=== PATIENT | female | born 1970 | race Caucasian/White ===

== ENCOUNTER 2022-01-15 09:13 | Day surgery (SDC) | payer BC, OTHER ==
[~2022-01-15 09:13] MED LIST: Lactated Ringers 1,000 ML IV SCH
[2022-01-15] MEDS ORDERED: fentaNYL 100 MCG/2 ML SDV ONE (10:20)
[2022-01-15] MEDS ORDERED: Propofol 200 MG/20 ML SDV ONE (10:20)
[2022-01-15] MEDS ORDERED: Lactated Ringers 1,000 ML IV SCH (12:15)
== END 2022-01-15 12:30 | disposition home or self-care (01) ==
LOC: MW.SDS 09:13
PROVIDERS: ATTEND Surgery
DX: Z12.11 Encounter for screening for malignant neoplasm of colon (principal); D12.4 Benign neoplasm of descending colon; J45.909 Unspecified asthma, uncomplicated; E66.9 Obesity, unspecified; Z79.899 Other long term (current) drug therapy; Z98.890 Other specified postprocedural states
CPT/HCPCS: 45380; 81025; J2704; J3010; J7120; 00812

== ENCOUNTER 2022-12-15 08:38 | Emergency (ER) | payer BC, OTHER ==
[2022-12-15] MEDS ORDERED: Acetaminophen 325 MG Tab PO ONE (08:52)
== END 2022-12-15 10:30 | disposition home or self-care (01) ==
LOC: MW.ED 08:38
DX: S92.355A Nondisplaced fracture of fifth metatarsal bone, left foot, initial encounter for closed fracture (principal); E66.9 Obesity, unspecified; Z68.31 Body mass index [BMI] 31.0-31.9, adult; W19.XXXA Unspecified fall, initial encounter
CPT/HCPCS: 29515; 73610; 73630; 99283; A9270